=== PATIENT | female | born 2000 | race Hispanic/Latino ===

== ENCOUNTER 2021-11-03 09:59 | Day surgery (SDC) | payer OTHER ==
[2021-11-03] MEDS ORDERED: Acetaminophen 500 MG TAB PO SCH (10:30)
[2021-11-03 10:42] VITALS: BMI 33.3
[2021-11-03] MEDS ORDERED: Iron Sucrose Complex 500 MG in Sodium Chloride 0.9% 250 ML 250 ML IVPB SCH (11:00)
== END 2021-11-03 15:00 | disposition home health service (06) ==
LOC: CSHLD/OP 09:59
PROVIDERS: ATTEND Advanced Practice Midwife
DX: O99.013 Anemia complicating pregnancy, third trimester (principal); Z3A.34 34 weeks gestation of pregnancy
CPT/HCPCS: J1756; J7050

== ENCOUNTER 2021-11-11 12:28 | Day surgery (SDC) | payer OTHER ==
[2021-11-11 14:17] VITALS: BMI 34.4
[2021-11-11] MEDS ORDERED: hydrALAZINE 20 MG/ML VIAL SLOW IVP PRN (14:37)
== END 2021-11-11 16:10 | disposition home health service (06) ==
LOC: CSHLD/OP 12:28
PROVIDERS: ATTEND Advanced Practice Midwife
DX: O47.03 False labor before 37 completed weeks of gestation, third trimester (principal); O99.013 Anemia complicating pregnancy, third trimester; O09.213 Supervision of pregnancy with history of pre-term labor, third trimester; Z3A.35 35 weeks gestation of pregnancy
CPT/HCPCS: 99283

== ENCOUNTER 2021-11-27 20:46 | Inpatient (IN) | payer OTHER ==
[~2021-11-27 20:46] MED LIST: Bupivacaine 0.25% HCL 30 ML VIAL ONE
[2021-11-27 21:03] VITALS: BMI 34.4
[2021-11-27] MEDS ORDERED: Misoprostol 200 MCG TAB PR PRN (21:29)
[2021-11-27] MEDS ORDERED: HYDROcodone/Acetaminophen 5/325 mg Tablet PO PRN ×2 (21:29)
[2021-11-27] MEDS ORDERED: Carboprost 250 MCG/ML AMP IM PRN (21:29)
[2021-11-27] MEDS ORDERED: Ibuprofen 800 MG TAB PO PRN (21:29)
[2021-11-27] MEDS ORDERED: Lidocaine 1% (PF) 30 ML VIAL SC PRN (21:29)
[2021-11-27] MEDS ORDERED: Promethazine HCl 25 MG/ML VIAL IM PRN ×2 (21:29→23:12)
[2021-11-27] MEDS ORDERED: hydrALAZINE 20 MG/ML VIAL SLOW IVP PRN (21:29)
[2021-11-27] MEDS ORDERED: Ondansetron PF 4 MG/2 ML Vial IVP PRN ×2 (21:29→23:12)
[2021-11-27] MEDS ORDERED: Methylergonovine 0.2 MG/ML VIAL IM PRN (21:29)
[2021-11-27] MEDS ORDERED: Lactated Ringer's 1,000 ML IV SCH (21:30)
[2021-11-27] MEDS ORDERED: NS w/ Oxytocin 30 units 500 ML IV SCH ×2 (21:30)
[2021-11-27] MEDS ORDERED: Fentanyl 2 mcg/Bup 0.1% Cadd 100 ML ONE (21:53)
[2021-11-27 22:25] LABS: Hemoglobin 10.6 g/dL (12.0-15.5); Mean Corpuscular HGB CONC 29.1 g/dL (32.0-36.0); Mean Corpuscular Hemoglobin 21.6 pg (27.0-33.0); Mean Corpuscular Volume 74.1 fl (81.6-98.3); Mean Platelet Volume 11.1 fl (7.4-10.4); Platelet Count 276 10x3/uL (150-450); RBC Distribution Width 26.9 % (11.5-14.5); Red Blood Cell (RBC) Count 4.91 10x6/uL (3.90-5.03); White Blood Cell (WBC) Count 9.7 10x3/uL (3.5-10.5)
[2021-11-27 22:38] LABS: Hep B Surf Ag Non-Reactive S/CO (NonReactive); Syphilis Antibody Nonreactive (Nonreactive); Syphilis Antibody Index 0.05 S/CO (<1.00 Non-Reactive)
[2021-11-27 22:59] LABS: HBSAg Index 0.21 S/CO (0-0.99)
[2021-11-27] MEDS ORDERED: Acetaminophen 325 MG TAB PO PRN (23:12)
[2021-11-27] MEDS ORDERED: ePHEDrine Sulfate 50 MG/10 ML VIAL SLOW IVP PRN (23:12)
[2021-11-27] MEDS ORDERED: diphenhydrAMINE 50 MG/ML VIAL IVP PRN (23:12)
[2021-11-27] MEDS ORDERED: Hydrocerin (Eucerin) Cream 120 gm Jar TOP PRN (23:12)
[2021-11-27] MEDS ORDERED: Naloxone HCl 0.4 mg/ml Vial IVP PRN ×2 (23:12)
[2021-11-27] MEDS ORDERED: Lactated Ringer's 500 ML IV PRN (23:12)
[2021-11-27] MEDS ORDERED: Communication Order-Pharmacy FS SCH (23:15)
[2021-11-27] MEDS ORDERED: Fentanyl 2 mcg/Bupivacaine 0.1% Cassette 100 ML EPIDURAL SCH (23:15)
[2021-11-28] MEDS ORDERED: Boostrix 0.5 ML (Tdap) VIAL IM ONE (02:21)
[2021-11-28] MEDS ORDERED: Methylergonovine 0.2 MG/ML VIAL IM PRN (02:21)
[2021-11-28] MEDS ORDERED: Milk Of Magnesia 30 ML UDCUP PO PRN (02:21)
[2021-11-28] MEDS ORDERED: Misoprostol 200 MCG TAB VAG PRN (02:21)
[2021-11-28] MEDS ORDERED: Benzocaine-Menthol 82.5 ML CAN TOP PRN (02:21)
[2021-11-28] MEDS ORDERED: Bisacodyl 10 MG SUPP PR PRN (02:21)
[2021-11-28] MEDS ORDERED: hydrALAZINE 20 MG/ML VIAL SLOW IVP PRN (02:21)
[2021-11-28] MEDS ORDERED: HYDROcodone/Acetaminophen 5/325 mg Tablet PO PRN ×2 (02:21)
[2021-11-28] MEDS ORDERED: Ondansetron PF 4 MG/2 ML Vial IVP PRN (02:21)
[2021-11-28] MEDS ORDERED: Lanolin Ointment 7 GM TUBE TOP PRN (02:21)
[2021-11-28] MEDS ORDERED: NS w/ Oxytocin 30 units 500 ML IV SCH (02:45)
[2021-11-28] MEDS ORDERED: Fluconazole 100 MG TAB PO ONE (03:00)
[2021-11-28] MEDS: Ibuprofen 800 MG TAB PO SCH ×3 (05:13→21:27)
[2021-11-28] MEDS ORDERED: Fluconazole 100 MG TAB PO SCH (05:45)
[2021-11-28] MEDS: Ferrous Sulfate 325 MG TAB PO SCH ×2 (08:13→19:16)
[2021-11-28] MEDS: Docusate Calcium (SURFAK) 240 MG CAP PO SCH ×2 (08:15→21:27)
[2021-11-28] MEDS: Prenatal Vitamin 1 TAB PO SCH (08:15)
[2021-11-28] MEDS ORDERED: Albuterol Sulfate 2.5 mg/3 ml Neb NEB SCH (13:30)
[2021-11-28] MEDS ORDERED: Ventolin HFA Inhaler 60 PUFF INHALER INH SCH (14:45)
[2021-11-29] MEDS: Ibuprofen 800 MG TAB PO SCH (05:10)
[2021-11-29 07:52] VITALS: BP 112/60; TEMP 98
[2021-11-29] MEDS: Prenatal Vitamin 1 TAB PO SCH (08:26)
[2021-11-29] MEDS: Ferrous Sulfate 325 MG TAB PO SCH (08:26)
[2021-11-29] MEDS: Docusate Calcium (SURFAK) 240 MG CAP PO SCH (08:26)
== END 2021-11-29 13:10 | disposition home or self-care (01) | DRG 807 ==
LOC: CSHLD/OP 20:46 → CSHLD 22:08 → CSHPP 11-28 02:50
PROVIDERS: ADMIT Obstetrics & Gynecology; ATTEND Obstetrics & Gynecology
PROC: 10E0XZZ Delivery of Products of Conception, External Approach (ICD-10-PCS; principal; 2021-11-28)
PROC: 0HQ9XZZ Repair Perineum Skin, External Approach (ICD-10-PCS; 2021-11-28)
DX: O69.1XX0 Labor and delivery complicated by cord around neck, with compression, not applicable or unspecified (principal); Z37.0 Single live birth; Z3A.38 38 weeks gestation of pregnancy; O70.0 First degree perineal laceration during delivery; J45.909 Unspecified asthma, uncomplicated; O99.52 Diseases of the respiratory system complicating childbirth; U09.9 Post COVID-19 condition, unspecified; R07.89 Other chest pain
CPT/HCPCS: 36415; 51702; 71046; 85027; 86780; 86850; 86900; 86901; 87340; 94664; 94799; 99285; J2590; J7120; S0020

== ENCOUNTER 2022-10-09 13:27 | Emergency (ER) | payer OTHER ==
[2022-10-09 14:05] LABS: #Monocytes 0.9 10x3/uL (0.0-1.1); #Neutrophils 6.5 10x3/uL (1.5-8.4); %Basophils 0.3 % (0.0-2.0); %Eosinophils 0.1 % (0.0-6.0); %Lymphocytes 14.2 % (18.0-47.0); %Neutrophils 75.2 % (40.0-75.0); Hemoglobin 11.8 g/dL (12.0-15.5); Mean Corpuscular HGB CONC 32.2 g/dL (32.0-36.0); Mean Corpuscular Hemoglobin 23.8 pg (27.0-33.0); Mean Corpuscular Volume 73.8 fl (81.6-98.3); Mean Platelet Volume 10.2 fl (7.4-10.4); Platelet Count 285 10x3/uL (150-450); RBC Distribution Width 16.9 % (11.5-14.5); Red Blood Cell (RBC) Count 4.96 10x6/uL (3.90-5.03); White Blood Cell (WBC) Count 8.6 10x3/uL (3.5-10.5)
[2022-10-09] MEDS ORDERED: Acetaminophen 500 MG TAB ONE (14:15)
[2022-10-09] MEDS ORDERED: Metoclopramide HCl 10 MG/2 ML VIAL ONE (14:15)
[2022-10-09 14:19] LABS: ALT (SGPT) 13 U/L (8-55); AST (SGOT) 13 U/L (5-34); Albumin 4.1 g/dL (3.5-5.0); Alkaline Phosphatase 88 U/L (40-110); Anion Gap 15 mmol/L (10-20); BUN (Urea Nitrogen) 10 mg/dL (7.0-18.7); Bilirubin, Total 0.8 mg/dL (0.2-1.2); Calc. Creatinine Clearance 0 mL/min (70-130); Calcium 9.7 mg/dL (7.8-10.44); Carbon Dioxide 19 mmol/L (22-29); Chloride 103 mmol/L (98-107); Estimated GFR 126; Glucose 99 mg/dL (70-105); Lipase 71 U/L (8-78); Potassium 3.5 mmol/L (3.5-5.1); Protein, Total 8.1 g/dL (6.0-8.3); Sodium 133 mmol/L (136-145)
[2022-10-09 15:02] LABS: Bilirubin Neg (Negative); Blood, Urine 10 (Negative); Clarity Sl. Cloudy (Clear); Glucose, Urine (Dipstick) Normal (Negative); Ketone, Urine 150 mg/dL (Negative); Leukocyte 100 (Negative); Nitrite Negative (Negative); Protein, Urine (Dipstick) 30 mg/dl (Neg-Trace); Specific Gravity, Urine 1.025 (1.005-1.030)
[2022-10-09 15:10] LABS: Bacteria/HPF 2+ HPF (None Seen); RBC/HPF 0-3 HPF (0-3)
[2022-10-09 15:11] LABS: Mucous/LPF 2+ LPF (<2+)
== END 2022-10-09 17:57 | disposition home or self-care (01) ==
LOC: CSHERS 13:27
DX: O26.851 Spotting complicating pregnancy, first trimester (principal); O99.891 Other specified diseases and conditions complicating pregnancy; R10.2 Pelvic and perineal pain; R82.71 Bacteriuria; Z3A.10 10 weeks gestation of pregnancy
CPT/HCPCS: 76815; 80053; 81003; 81015; 83690; 84702; 85025; 86900; 86901; 96365; 96366; J2765

== ENCOUNTER → 2023-02-19 | Day surgery (SDC) | payer OTHER ==
[~2023-02-19] MED LIST changes: +Acetaminophen 500 MG TAB ONE; -Bupivacaine 0.25% HCL 30 ML VIAL ONE; +Iron Sucrose Complex 500 MG in Sodium Chloride 0.9% 250 ML 250 ML IVPB SCH
== END ==
LOC: CSHSDC/OP 09:23
PROVIDERS: ATTEND Family Medicine
DX: O99.019 Anemia complicating pregnancy, unspecified trimester (principal); D64.9 Anemia, unspecified